=== PATIENT | female | born 1950 | race Caucasian/White ===

== ENCOUNTER 2016-08-07 18:50 | Emergency (ER) | payer OTHER ==
[2016-08-07] MEDS ORDERED: IBUPROFEN 600 MG TABLET PO STA (19:17)
[2016-08-07] MEDS ORDERED: IBUPROFEN 600 MG TABLET PO ONE (19:18)
[2016-08-07] MEDS ORDERED: levoFLOXacin 250 MG TABLET PO STA (19:48)
[2016-08-07] MEDS ORDERED: HYDROcod/ACET 5/325 Prepack 6 PO STA (19:55)
[2016-08-07] MEDS ORDERED: HYDROcod/ACET 5/325 Prepack 6 PO ONE (19:58)
[2016-08-07] MEDS ORDERED: levoFLOXacin 250 MG TABLET PO ONE (19:58)
== END 2016-08-07 20:07 | disposition home or self-care (01) ==
DX: N12 Tubulo-interstitial nephritis, not specified as acute or chronic (principal); R03.0 Elevated blood-pressure reading, without diagnosis of hypertension
CPT/HCPCS: 81001; 87086; 99283; A9270

== ENCOUNTER 2017-01-09 21:28 | Outpatient (CLI) | payer OTHER | END 2017-01-09 21:29 | disposition critical access hospital (66) | LOC: EMS 21:28 | PROVIDERS: ATTEND Surgery | DX: R42 Dizziness and giddiness (principal) | CPT/HCPCS: A0425; A0427 ==

== ENCOUNTER 2017-01-09 21:48 | Emergency (ER) | payer OTHER ==
[2017-01-09] MEDS ORDERED: SODIUM CHLORIDE 0.9% 1,000 ML IV ONE (22:31)
[2017-01-09 22:54] LABS: BASOPHILS # (AUTO) 0.1 10^3/uL (0.0-0.1); BASOPHILS % (AUTO) 0.7 %; EOSINOPHILS # (AUTO) 0.2 10^3/uL (0.0-0.7); EOSINOPHILS % (AUTO) 1.3 %; HCT - HEMATOCRIT 38.3 % (37.0-47.0); HGB - HEMOGLOBIN 12.8 g/dL (12.0-16.0); LYMPHOCYTES # (AUTO) 2.1 10^3/uL (1.5-3.5); LYMPHOCYTES % (AUTO) 17.4 %; MEAN CORPUSCULAR HEMOGLOBIN 29.8 pg (27.0-31.0); MEAN CORPUSCULAR HGB CONC 33.5 g/dL (32.0-36.0); MONOCYTES # (AUTO) 0.8 10^3/uL (0.0-1.0); MONOCYTES % (AUTO) 6.7 %; NEUTROPHILS # (AUTO) 8.7 10^3/uL (1.5-6.6); NEUTROPHILS % (AUTO) 73.9 %; RED CELL DISTRIBUTION WIDTH 13.3 % (12.0-15.0); UNCORRECTED WHITE BLOOD COUNT 11.8 x10^3/uL; WHITE BLOOD COUNT 11.8 x10^3/uL (4.8-10.8)
[2017-01-09 23:13] LABS: ALBUMIN/GLOBULIN RATIO 1.7 (1.0-2.2); BILIRUBIN,TOTAL 0.6 mg/dL (0.2-1.0); CREATININE 0.8 mg/dL (0.4-1.0); POTASSIUM 3.6 mmol/L (3.5-5.0); TOTAL PROTEIN 6.8 g/dL (6.7-8.2)
[2017-01-09] MEDS ORDERED: ONDANSETRON ODT 4 MG Prepack 2 TL PRN (23:39)
--- NOTE | 2017-01-09 23:39 | ED Physician Documentation ---
PD HPI NVD - Stated complaint Stated Complaint: DIZZY,NAUSEA - Chief complaint Chief Complaint: Abd Pain - History obtained from History obtained from: Patient - History of Present Illness Timing - onset: Today Timing - details: Abrupt onset, Now resolved Associated symptoms: Dizzy Contributing factors: Other (recent flu vaccine) Similar symptoms before: Has not had sx before Recently seen: Not recently seen - Additonal information Additional information: Patient is a 66 year old female with no significant past medical history who is presenting to the emergency department for nausea, vomiting diarrhea and dizziness. patient states that today she had a flu shot. later on she felt dizzy and clammy and patient called ems. Patient states that she had an episode and diarrhea and vomiting and her symptoms improved. Patient denied any chest pain or shortness of breath. Review of Systems Constitutional: reports: Chills. denies: Fever Eyes: denies: Decreased vision, Photophobia Ears: denies: Ear pain, Drainage/discharge Nose: denies: Congestion Throat: denies: Sore throat Cardiac: denies: Chest pain / pressure, Palpitations Respiratory: denies: Dyspnea, Cough, Wheezing GI: reports: Abdominal Pain, Nausea, Vomiting, Diarrhea : denies: Dysuria, Frequency, Hesitancy Musculoskeletal: denies: Neck pain, Extremity pain Neurologic: denies: Generalized weakness Immunocompromised: denies: Immunocompromised PD PAST MEDICAL HISTORY - Past Medical History Past Medical History: Yes Psych: Depression - Past Surgical History Past Surgical History: No - Present Medications Home Medications: Ambulatory Orders Medication Instructions Recorded Confirmed Lamotrigine [Lamictal] 50 mg PO DAILY 08/07/16 01/09/17 Ondansetron Odt [Zofran] 4 mg TL Q6H PRN #14 tablet 01/09/17 - Allergies Allergies/Adverse Reactions: Allergies Allergy/AdvReac Type Severity Reaction Status Date / Time codeine AdvReac Nausea Verified 01/09/17 21:57 hydrocodone AdvReac Nausea Verified 01/09/17 21:57 "all those codeine things" AdvReac Nausea Uncoded 01/09/17 21:57 - Social History Does the pt smoke?: No Smoking Status: Never smoker Does the pt drink ETOH?: Yes Does the pt have substance abuse?: No - Immunizations Immunizations are current?: Yes - POLST Patient has POLST: No PD ED PE NORMAL - General General: Alert and oriented X 3 - HEENT HEENT: Atraumatic, PERRL - Neck Neck: Supple, no meningeal sign, No JVD - Cardiac Cardiac: RRR, No murmur - Respiratory Respiratory: No respiratory distress, Clear bilaterally - Abdomen Abdomen: Soft - Derm Derm: Normal color, Warm and dry, No rash - Extremities Extremities: No deformity, No tenderness to palpate, No edema - Neuro Neuro: Alert and oriented X 3, No motor deficit, No sensory deficit, Normal speech - Psych Psych: Normal mood PD ED PE EXPANDED - General General: Alert - HEENT HEENT: Dry mucous membranes - Abdomen Abdomen: Hyperactive BS. No: Distended, Rebound, Guarding Results - Vitals Vitals: Vital Signs - 24 hr 01/09/17 01/09/17 01/09/17 21:51 22:38 23:18 Temperature 36.5 C Heart Rate 56 L 66 53 L Respiratory 18 12 15 Rate Blood Pressure 113/51 L 117/53 L 103/56 L O2 Saturation 98 97 97 01/09/17 23:53 Temperature 36.3 C L Heart Rate 57 L Respiratory 12 Rate Blood Pressure 120/60 O2 Saturation 99 Oxygen O2 Source Room air - EKG (time done) 2210 Rate: Rate (enter#) (59) Rhythm: NSR [place]: Normal Intervals: Normal NM QRS: Normal Ischemia: Normal ST segments Compare to prior EKG: Old EKG unavailable - Labs Labs: Laboratory Tests 01/09/17 01/09/17 01/09/17 22:40 22:40 22:40 WBC 11.8 H RBC 4.30 Hgb 12.8 Hct 38.3 MCV 89.0 MCH 29.8 MCHC 33.5 RDW 13.3 Plt Count 156 MPV 10.0 Neut # 8.7 H Lymph # 2.1 [place] # 0.8 Eos # 0.2 Baso # 0.1 Absolute Nucleated RBC 0.00 Nucleated RBC % 0.0 Sodium 138 Potassium 3.6 Chloride 103 Carbon Dioxide 27 Anion Gap 8.0 BUN 13 Creatinine 0.8 Estimated GFR (MDRD) 72 L Glucose 145 H Calcium 9.0 Total Bilirubin 0.6 AST 20 ALT 21 Alkaline Phosphatase 69 Troponin I < 0.04 Total Protein 6.8 Albumin 4.3 Globulin 2.5 Albumin/Globulin Ratio 1.7 Lipase 24 PD MEDICAL DECISION MAKING - ED course Complexity details: reviewed old records, reviewed results, re-evaluated patient , considered differential, d/w patient ED course: Patient was seen and examined at bedside. IV access was gained. ekg was performed which showed sinus rhythm. labs were drawn. Patient was treated with zofran and IV fluids. Patient stated that her symptoms resolved. Patient' s diagnostics were all within normal limits. Patient was discharged in stable condition with a resolution of her symptoms. Departure - Departure Disposition: 01 Home, Self Care Clinical Impression: Gastroenteritis Condition: Good Instructions: ED Gastroenteritis Non Infec Follow-Up: Alessia Weiss PA [Primary Care Provider] - Within 3 Days Prescriptions: Ondansetron Odt [Zofran] 4 mg TL Q6H PRN #14 tablet PRN Reason: Nausea / Vomiting Comments: Your diagnostics today were within normal limits. It is difficult to say if it the symptoms are secondary to the vaccine you had, food poisoning or a virus. Either way treatment is all the same. It is supportive care with zofran for nausea and stay hydrated with gatorade or electrolyte solution. You should follow up with your doctor if your symptoms persist for more than a few days. You may return to the emergency department department at any time for new, worsening or uncontrollable symptoms. Discharge Date/Time: 01/10/17 00:17
[2017-01-09 23:56] VITALS: BP 120/60
[2017-01-10] MEDS ORDERED: ONDANSETRON ODT 4 MG Prepack 2 TL ONE (00:16)
== END 2017-01-10 00:17 | disposition home or self-care (01) ==
LOC: EDUNIT# → ED 21:48
DX: K52.9 Noninfective gastroenteritis and colitis, unspecified (principal); N30.00 Acute cystitis without hematuria
CPT/HCPCS: 36415; 80053; 81001; 83690; 84484; 85025; 87086; 93005; 99284

== ENCOUNTER 2017-01-10 12:25 | Outpatient (CLI) | payer OTHER ==
[2017-01-10 11:45] LABS: BILIRUBIN,URINE NEGATIVE (NEGATIVE)
[2017-01-10 12:14] LABS: UR CULTURE IF IND INDICATED; WBC,URINE 0-3 /HPF (0-5)
== END 2017-01-10 12:26 | disposition home or self-care (01) ==
LOC: LAB.R 12:25
PROVIDERS: ATTEND Nurse Practitioner Family
DX: N30.00 Acute cystitis without hematuria (principal)
CPT/HCPCS: 81001; 87086

== ENCOUNTER 2017-02-06 13:25 | Outpatient (CLI) | payer OTHER ==
[2017-02-06 17:43] LABS: BASOPHILS # (AUTO) 0.1 10^3/uL (0.0-0.1); BASOPHILS % (AUTO) 0.7 %; EOSINOPHILS # (AUTO) 0.3 10^3/uL (0.0-0.7); EOSINOPHILS % (AUTO) 3.4 %; HCT - HEMATOCRIT 39.1 % (37.0-47.0); HGB - HEMOGLOBIN 13.2 g/dL (12.0-16.0); LYMPHOCYTES # (AUTO) 2.7 10^3/uL (1.5-3.5); LYMPHOCYTES % (AUTO) 33.1 %; MEAN CORPUSCULAR HEMOGLOBIN 30.3 pg (27.0-31.0); MEAN CORPUSCULAR HGB CONC 33.7 g/dL (32.0-36.0); MEAN PLATELET VOLUME 10.8 fL (7.9-10.8); MONOCYTES # (AUTO) 0.7 10^3/uL (0.0-1.0); MONOCYTES % (AUTO) 8.6 %; NEUTROPHILS # (AUTO) 4.4 10^3/uL (1.5-6.6); NEUTROPHILS % (AUTO) 54.2 %; RED BLOOD COUNT 4.34 10^6/uL (4.20-5.40); RED CELL DISTRIBUTION WIDTH 13.6 % (12.0-15.0); UNCORRECTED WHITE BLOOD COUNT 8.2 x10^3/uL; WHITE BLOOD COUNT 8.2 x10^3/uL (4.8-10.8)
== END 2017-02-06 13:26 | disposition home or self-care (01) ==
LOC: LAB.F 13:25
PROVIDERS: ATTEND Nurse Practitioner Family
DX: Z13.0 Encounter for screening for diseases of the blood and blood-forming organs and certain disorders involving the immune mechanism (principal)
CPT/HCPCS: 36415; 85025

== ENCOUNTER 2017-04-17 11:52 | Outpatient (CLI) | payer OTHER ==
--- NOTE | 2017-04-18 18:29 | Ultrasound Report ---
DATE OF SERVICE: 04/17/2017 RIGHT UPPER QUADRANT ULTRASOUND: 04/17/2017 CLINICAL INDICATION: Right upper quadrant pain. TECHNIQUE: Real-time scanning was performed with apprenticeship representative static images obtained. The liver measures 13.5 cm. Hepatic echogenicity is normal. No intrahepatic biliary dilatation or f ocal parenchymal lesion is present. The common bile duct measures 4 mm. The gallbladder is normal. The right kidney measures 10.6 cm, and demonstrates no hydronephrosis. No free fluid is present. IMPRESSION: Normal right upper quadrant ultrasound. No evidence of cholelithiasis or biliary obstru ction. TD: 04/18/2017 19:28
== END 2017-04-17 11:53 | disposition home or self-care (01) ==
LOC: DI 11:52
PROVIDERS: ATTEND Nurse Practitioner Family
DX: R10.11 Right upper quadrant pain (principal)
CPT/HCPCS: 76705

== ENCOUNTER 2017-10-24 14:25 | Outpatient (CLI) | payer OTHER ==
--- NOTE | 2017-10-24 14:57 | XRAY Report ---
Procedure Date: 10/24/2017 Accession Number: [id number] / [id number] Procedure: XRS - Hand 3 View LT CPT Code: FULL RESULT: EXAM: Hand 3 View LT DATE: 10/24/2017 2:44 PM CLINICAL HISTORY: PAIN IN LEFT WRIST HAND COMPARISON: None. TECHNIQUE: 3 views. FINDINGS: Bones: Osteoarthrosis of the proximal and distal interphalangeal joints, most pronounced in the distal second and third rays. Joints: Normal. No subluxations. Soft Tissues: Normal. No soft tissue swelling. IMPRESSION: Osteoarthrosis as described. No fracture. RADIA
--- NOTE | 2017-10-24 15:09 | XRAY Report ---
Procedure Date: 10/24/2017 Accession Number: [id number] / [id number] Procedure: XRS - Wrist 4 View LT CPT Code: FULL RESULT: EXAM: Wrist 4 View LT DATE: 10/24/2017 2:44 PM CLINICAL HISTORY: PAIN IN LEFT WRIST HAND COMPARISON: None. TECHNIQUE: 3 views. FINDINGS: Bones: Normal. No fractures or bone lesions. Joints: Normal. No subluxations. Soft Tissues: Normal. No soft tissue swelling. IMPRESSION: Normal wrist radiography. RADIA
== END 2017-10-24 14:26 | disposition home or self-care (01) ==
LOC: DI.S 14:25
PROVIDERS: ATTEND Nurse Practitioner Family
DX: M19.042 Primary osteoarthritis, left hand (principal)

== ENCOUNTER 2018-05-07 13:34 | Outpatient (CLI) | payer OTHER ==
[2018-05-07 17:37] LABS: BASOPHILS # (AUTO) 0.1 10^3/uL (0.0-0.1); EOSINOPHILS # (AUTO) 0.2 10^3/uL (0.0-0.7); EOSINOPHILS % (AUTO) 3.2 %; HGB - HEMOGLOBIN 13.4 g/dL (12.0-16.0); LYMPHOCYTES # (AUTO) 1.9 10^3/uL (1.5-3.5); LYMPHOCYTES % (AUTO) 35.4 %; MEAN CORPUSCULAR HEMOGLOBIN 29.1 pg (27.0-31.0); MEAN CORPUSCULAR HGB CONC 32.1 g/dL (32.0-36.0); MEAN CORPUSCULAR VOLUME 90.7 fL (81.0-99.0); MEAN PLATELET VOLUME 10.2 fL (7.9-10.8); MONOCYTES # (AUTO) 0.4 10^3/uL (0.0-1.0); MONOCYTES % (AUTO) 8.1 %; NEUTROPHILS # (AUTO) 2.8 10^3/uL (1.5-6.6); NEUTROPHILS % (AUTO) 52.3 %; PLT - PLATELET COUNT 200 10^3/uL (130-450); RED CELL DISTRIBUTION WIDTH 13.8 % (12.0-15.0); WHITE BLOOD COUNT 5.4 x10^3/uL (4.8-10.8)
[2018-05-07 17:54] LABS: ALBUMIN 4.2 g/dL (3.2-5.5); ALBUMIN/GLOBULIN RATIO 1.6 (1.0-2.2); BILIRUBIN,TOTAL 0.6 mg/dL (0.2-1.0); CALCIUM 9.1 mg/dL (8.5-10.3); CREATININE 0.7 mg/dL (0.4-1.0); TOTAL PROTEIN 6.9 g/dL (6.7-8.2)
== END 2018-05-07 13:35 | disposition home or self-care (01) ==
LOC: LAB.F 13:34
PROVIDERS: ATTEND Physician Assistant Medical
DX: Z51.81 Encounter for therapeutic drug level monitoring (principal)
CPT/HCPCS: 36415; 80053; 85025

== ENCOUNTER 2018-05-24 11:44 | Outpatient (CLI) | payer OTHER ==
--- NOTE | 2018-05-24 17:50 | DEXA Report ---
Reason: POSTMENOPAUSAL STATUS Procedure Date: 05/24/2018 Accession Number: [id number] / [id number] Procedure: DEX - Dexa Spine and/or Hip CPT Code: FULL RESULT: EXAM: Dexa Spine and/or Hip DATE: 05/24/2018 1:16 PM CLINICAL HISTORY: POSTMENOPAUSAL STATUS TECHNIQUE: Dual energy x-ray absorptiometry (DXA) was performed on a [employer] System. Regions measured are the AP Spine, femoral neck, and if needed forearm. COMPARISON: 01/30/2008 In accordance with the International Society for Clinical Densitometry (ISCD) guidelines, data from previous exams may be reanalyzed using current recommendations and techniques. This is done to allow a more accurate basis for comparison with the current study. FINDINGS: The data for the lumbar spine is as follows: BMD (g/cm/cm) T-SCORE Z-SCORE REGION L1 1.149 0.2 1.6 L2 1.144 -0.5 0.9 L3 1.146 -0.4 1.0 L4 1.005 -1.6 -0.2 TOTAL 1.102 -0.7 0.8 NOTE: All evaluable vertebrae are used for classification The data for the hip is as follows: BMD (g/cm/cm) T-SCORE Z-SCORE REGION Neck 0.940 -0.7 0.7 TOTAL 0.973 -0.3 0.8 NOTE: The femoral neck or total proximal femur, whichever is lowest, is used for classification. IMPRESSION: THE WHO CLASSIFICATION BASED ON THE INTERNATIONAL REFERENCE STANDARD IS NORMAL. THE FRACTURE RISK IS NOT INCREASED. RECOMMENDATION: Patients with diagnosis of osteoporosis or osteopenia should have regular bone mineral density assessment. For those eligible for Medicare, routine testing is allowed once every 2 years. Testing frequency can be increased for patients who have rapidly progressing disease or for those who are receiving medical therapy to restore bone mass. COMMENT: World Health Organization (WHO) definitions for osteoporosis and osteopenia: NORMAL BMD: T-score at -1.0 or higher, fracture risk is low OSTEOPENIA BMD: T-score between -1.0 and -2.5, fracture risk is increased. OSTEOPOROSIS BMD: T-score at -2.5 or lower, fracture risk is high. National Osteoporosis Foundation recommends: 1. Obtain adequate dietary calcium (at least 1200 mg per day) and vitamin D (400-800 international units per day). 2. Participate, as appropriate, in regular weightbearing and muscle-strengthening exercise. 3. Avoid tobacco use and reduce alcohol and caffeine intake. 4. For more detailed information see the website at www.NOF.org.
== END 2018-05-24 11:45 | disposition home or self-care (01) ==
LOC: DI 11:44
PROVIDERS: ATTEND Physician Assistant Medical
DX: Z78.0 Asymptomatic menopausal state (principal); M18.12 Unilateral primary osteoarthritis of first carpometacarpal joint, left hand
CPT/HCPCS: 77080

== ENCOUNTER 2018-05-24 11:45 | Outpatient (CLI) | payer OTHER ==
--- NOTE | 2018-05-25 12:39 | XRAY Report ---
Reason: PAIN IN LEFT WRIST Procedure Date: 05/24/2018 Accession Number: [id number] / [id number] Procedure: XR - Wrist 4 View LT CPT Code: FULL RESULT: EXAM: LEFT WRIST RADIOGRAPHY EXAM DATE: 05/24/2018 12:47 PM. CLINICAL HISTORY: PAIN IN LEFT WRIST. Pain at base of first metacarpal, navicular area. COMPARISON: WRIST 4 VIEW LT 10/24/2017 2:49 PM. TECHNIQUE: 4 views. FINDINGS: Bones: Normal. No fractures or bone lesions. Joints: No subluxation or dislocation. There is moderate joint space narrowing, mild sclerosis, and moderate marginal osteophyte formation at the first carpometacarpal joint. The appearance is similar to prior. Soft Tissues: Normal. No soft tissue swelling. IMPRESSION: 1. No acute osseous abnormality of the wrist. 2. Moderate degenerative osteoarthritis at the first carpometacarpal joint, as seen on the prior exam. RADIA
== END 2018-05-24 11:46 | disposition home or self-care (01) ==
LOC: DI 11:45
PROVIDERS: ATTEND Physician Assistant Medical
DX: M18.12 Unilateral primary osteoarthritis of first carpometacarpal joint, left hand (principal)

== ENCOUNTER 2019-03-19 09:42 | Outpatient (CLI) | payer OTHER ==
[2019-03-19 17:33] LABS: HB2 TOTAL 13.6 g/dL; HEMOGLOBIN A1C 0.6 g/dL; HEMOGLOBIN A1C % 6.2 % (4.6-6.2)
== END 2019-03-19 09:43 | disposition home or self-care (01) ==
LOC: LAB.S 09:42
PROVIDERS: ATTEND Physician Assistant Medical
DX: R73.01 Impaired fasting glucose (principal)
CPT/HCPCS: 36415; 83036

== ENCOUNTER 2019-05-20 08:00 | Outpatient (CLI) | payer OTHER | END 2019-05-20 23:59 | disposition home or self-care (01) | LOC: LAB.R 08:00 | PROVIDERS: ATTEND Physician Assistant Medical | DX: N39.0 Urinary tract infection, site not specified (principal) | CPT/HCPCS: 87077; 87086; 87181 ==

== ENCOUNTER 2019-12-05 12:50 | Outpatient (CLI) | payer OTHER ==
--- NOTE | 2019-12-05 15:01 | XRAY Report ---
PROCEDURE: Chest 2 View X-Ray INDICATIONS: HISTORY OF PNEUMONIA, PERSONAL HISTORY OF SMOKING TECHNIQUE: 2 view(s) of the chest. COMPARISON: None. FINDINGS: Surgical changes and devices: None. Lungs and pleura: No pleural effusions or pneumothorax. Lungs are clear. Mediastinum: Mediastinal contours are normal. Heart size is normal. Bones and chest wall: No suspicious bony abnormalities. Soft tissues appear unremarkable. IMPRESSION: Normal for age, source of current symptoms is not seen. Reviewed by: Torin Escobar MD on 12/05/2019 2:59 PM PDT Approved by: Torin Escobar MD on 12/05/2019 2:59 PM PDT Station ID: [id number]
== END 2019-12-05 12:51 | disposition home or self-care (01) ==
LOC: DI 12:50
PROVIDERS: ATTEND Family Medicine
DX: Z87.01 Personal history of pneumonia (recurrent) (principal); Z87.891 Personal history of nicotine dependence
CPT/HCPCS: 71046

== ENCOUNTER 2020-04-28 13:33 | Outpatient (CLI) | payer OTHER ==
[2020-04-28 19:50] LABS: BASOPHILS # (AUTO) 0.1 10^3/uL (0.0-0.1); BASOPHILS % (AUTO) 0.9 %; EOSINOPHILS # (AUTO) 0.3 10^3/uL (0.0-0.7); EOSINOPHILS % (AUTO) 4.6 %; HGB - HEMOGLOBIN 14.3 g/dL (12.0-16.0); LYMPHOCYTES # (AUTO) 2.7 10^3/uL (1.5-3.5); LYMPHOCYTES % (AUTO) 39.3 %; MEAN CORPUSCULAR HEMOGLOBIN 29.1 pg (27.0-31.0); MEAN CORPUSCULAR HGB CONC 32.3 g/dL (32.0-36.0); MEAN CORPUSCULAR VOLUME 90.2 fL (81.0-99.0); MEAN PLATELET VOLUME 12.4 fL (7.9-10.8); MONOCYTES # (AUTO) 0.7 10^3/uL (0.0-1.0); MONOCYTES % (AUTO) 9.6 %; NEUTROPHILS # (AUTO) 3.2 10^3/uL (1.5-6.6); NEUTROPHILS % (AUTO) 45.3 %; PLT - PLATELET COUNT 237 10^3/uL (130-450); RED BLOOD COUNT 4.91 10^6/uL (4.20-5.40); RED CELL DISTRIBUTION WIDTH 13.5 % (12.0-15.0)
[2020-04-28 20:01] LABS: HEMOGLOBIN A1c% 5.7 % (4.27-6.07)
[2020-04-28 20:04] LABS: ALBUMIN 4.4 g/dL (3.2-5.5); ALBUMIN/GLOBULIN RATIO 1.4 (1.0-2.2); ALKALINE PHOSPHATASE 91 IU/L (42-121); ALT ALANINE AMINOTRANSFERASE 20 IU/L (10-60); AST ASPARTATE AMINOTRANSFERASE 16 IU/L (10-42); BILIRUBIN,TOTAL 0.7 mg/dL (0.2-1.0); BUN - BLOOD UREA NITROGEN 14 mg/dL (6-20); CALCIUM 9.4 mg/dL (8.5-10.3); CARBON DIOXIDE - CO2 27 mmol/L (21-32); CHLORIDE 102 mmol/L (101-111); CHOL/HDL RATIO 3.5 (<4.4); CHOLESTEROL 277 mg/dL; CREATININE 0.6 mg/dL (0.4-1.0); GLUCOSE 110 mg/dL (70-100); HDL CHOLESTEROL 80 mg/dL; LDL CHOLESTEROL,CALCULATED 178 mg/dL; LDL/HDL RATIO 2.2 (<4.4); SODIUM 137 mmol/L (135-145); TOTAL PROTEIN 7.5 g/dL (6.7-8.2); VLDL CHOLESTEROL 19 mg/dL
== END 2020-04-28 13:34 | disposition home or self-care (01) ==
LOC: LAB.S 13:33
PROVIDERS: ATTEND Internal Medicine
DX: Z51.81 Encounter for therapeutic drug level monitoring (principal); E78.70 Disorder of bile acid and cholesterol metabolism, unspecified; R73.01 Impaired fasting glucose; E61.1 Iron deficiency
CPT/HCPCS: 36415; 80053; 80061; 83036; 83721; 85025

== ENCOUNTER 2020-09-15 08:00 | Outpatient (CLI) | payer OTHER ==
--- NOTE | 2020-09-15 14:57 | XRAY Report ---
PROCEDURE: Hip w/Pelvis 2-3V LT INDICATIONS: STRAIN OF LEFT HIP TECHNIQUE: AP pelvis with lateral view(s) of the bilateral hip(s). COMPARISON: None. FINDINGS: Bones: No fractures or dislocations. Pelvic ring appears intact. No suspicious bony lesions. Mild joint space narrowing and periarticular osteophyte formation at the bilateral hips. Soft tissues: The visualized bowel gas pattern is normal. No suspicious soft tissue calcifications. IMPRESSION: Bilateral hip osteoarthritis. No acute fracture. No osseous lesion. If symptoms and/or c linical suspicion for pathology continue, further assessment with repeat plain films, or advanced jerome ging (e.g., CT, MRI, or bone scan) is recommended for further assessment. Reviewed by: Daksha Castellon MD on 09/15/2020 2:55 PM PDT Approved by: Daksha Castellon MD on 09/15/2020 2:55 PM PDT Station ID: [id number]
== END 2020-09-15 23:59 | disposition home or self-care (01) ==
LOC: DI.S 08:00
PROVIDERS: ATTEND Emergency Medicine
DX: S76.012A Strain of muscle, fascia and tendon of left hip, initial encounter (principal); M16.0 Bilateral primary osteoarthritis of hip

== ENCOUNTER 2020-12-26 18:56 | Emergency (ER) | payer MEDICARE, OTHER ==
--- NOTE | 2020-12-26 20:20 | ED Physician Documentation ---
PD HPI OPHTHO - Stated complaint Stated Complaint: EYE INJURY - Chief complaint Chief Complaint: Heent - History obtained from History obtained from: Patient (For the last 36 hours or so this 70-year-old woman who does not really have any particular eye problems presents with floaters in the lateral vision of her left eye. Its worse when she moves her eyes around. Central vision is unaffected. She was going to be seeing Dr. Roach for a routine visit) Review of Systems Constitutional: denies: Fever, Chills Eyes: denies: Photophobia, Discharge, Irritation Ears: denies: Loss of hearing, Ear pain PD PAST MEDICAL HISTORY - Past Medical History Psych: Depression - Past Surgical History Past Surgical History: No - Present Medications Home Medications: Ambulatory Orders Medication Instructions Recorded Confirmed lamoTRIgine [Lamictal] 50 mg PO DAILY 08/07/16 12/26/20 - Allergies Allergies/Adverse Reactions: Allergies Allergy/AdvReac Type Severity Reaction Status Date / Time codeine AdvReac Nausea Verified 12/26/20 19:00 hydrocodone AdvReac Nausea Verified 12/26/20 19:00 "all those codeine things" AdvReac Nausea Uncoded 12/26/20 19:00 - Social History Does the pt smoke?: No Smoking Status: Never smoker Does the pt drink ETOH?: Yes Does the pt have substance abuse?: No - Immunizations Immunizations are current?: Yes - POLST Patient has POLST: No PD ED PE NORMAL - Vitals Vital signs reviewed: Yes - General General: Alert and oriented X 3, No acute distress - HEENT HEENT: PERRL, EOMI, Other (Nondilated funduscopic examination is normal. Retinal ultrasound on the left is normal.) - Neck Neck: Supple, no meningeal sign, No bony TTP - Neuro Neuro: Alert and oriented X 3, qa consultant 2-12 intact, No motor deficit, No sensory deficit, Normal speech Eye Opening: Spontaneous Motor: Obeys Commands Verbal: Oriented GCS Score: 15 - Psych Psych: Normal mood, Normal affect Results - Vitals Vitals: Vital Signs - 24 hr 12/26/20 19:00 Temperature 36.5 C Heart Rate 74 Respiratory 16 Rate Blood Pressure 127/81 H O2 Saturation 96 Oxygen O2 Source Room air Departure - Departure Disposition: 01 Home, Self Care Clinical Impression: Vitreous detachment of left eye Condition: Good Record reviewed to determine appropriate education?: Yes Instructions: Flashes and Floaters Follow-Up: Kentrell Roach MD [Provider Admit Priv/Credential] - Comments: As discussed, your symptoms are very consistent with a vitreous detachment which is not as serious as a retinal detachment. I have texted Dr. Roach to see you on Monday as opposed to your scheduled appointment. I would still call his office at [phone] on Monday to get it scheduled formally with his switchboard.
[2020-12-26 20:31] VITALS: BP 129/72
== END 2020-12-26 20:31 | disposition home or self-care (01) ==
LOC: ED 18:56
DX: H43.812 Vitreous degeneration, left eye (principal)
CPT/HCPCS: 99281; 99284

== ENCOUNTER 2021-02-02 16:38 | Outpatient (CLI) | payer OTHER | END 2021-02-02 16:39 | disposition home or self-care (01) | LOC: COV 16:38 | PROVIDERS: ATTEND Family Medicine | DX: U07.1 COVID-19 (principal) ==

== ENCOUNTER 2021-02-05 10:41 | Outpatient (CLI) | payer OTHER ==
--- NOTE | 2021-02-05 12:20 | XRAY Report ---
PROCEDURE: Wrist 3 View LT INDICATIONS: WRIST JOINT PAIN, LEFT TECHNIQUE: 3 views of the wrist were acquired. COMPARISON: None FINDINGS: Bones: No fractures or dislocations. No suspicious bony lesions. Degenerative changes of the first carpometacarpal joint consistent with osteoarthritis. Scaphoid view: No fracture Soft tissues: No suspicious soft tissue calcifications. IMPRESSION: 1. No acute abnormality. 2. Degenerative changes of the first carpometacarpal joint consistent with osteoarthritis. Reviewed by: Yvan Sanchez on 02/05/2021 12:19 PM PDT Approved by: Yvan Sanchez on 02/05/2021 12:19 PM PDT Station ID: [id number]
--- NOTE | 2021-02-11 02:21 | XRAY Report ---
PROCEDURE: Hand 3 View LT INDICATIONS: HAND JOINT PAIN, LEFT TECHNIQUE: 3 views of the hand(s) acquired. Images became available for review on 02/10/2021. COMPARISON: X-ray hand 10/24/2017 FINDINGS: Bones: No fractures or dislocations. No suspicious bony lesions. Scattered overall moderate IP deg enerative narrowing with areas of subchondral sclerosis noted most prominent at the second and third DIP joints. Moderate first CMC degenerative narrowing is present. There are subchondral lucencies teetee ntified at the second and third DIP joints. Soft tissues: No suspicious soft tissue calcifications. IMPRESSION: Arthritic changes most severe at the second and third DIP joints with areas of subchondral lucency. E rosive arthritides cannot be excluded. Reviewed by: Khushboo Lo MD on 02/11/2021 1:36 AM PDT Approved by: Khushboo Lo MD on 02/11/2021 1:36 AM PDT Station ID: [id number]
== END 2021-02-05 10:42 | disposition home or self-care (01) ==
LOC: DI.S 10:41
PROVIDERS: ATTEND Internal Medicine
DX: M19.032 Primary osteoarthritis, left wrist (principal); M19.042 Primary osteoarthritis, left hand

== ENCOUNTER 2022-03-07 13:47 | Outpatient (CLI) | payer OTHER ==
[2022-03-07 19:55] LABS: BASOPHILS # (AUTO) 0.1 10^3/uL (0.0-0.1); EOSINOPHILS # (AUTO) 0.2 10^3/uL (0.0-0.7); EOSINOPHILS % (AUTO) 3.2 %; HCT - HEMATOCRIT 43.6 % (37.0-47.0); HGB - HEMOGLOBIN 13.8 g/dL (12.0-16.0); LYMPHOCYTES # (AUTO) 2.6 10^3/uL (1.5-3.5); LYMPHOCYTES % (AUTO) 37.5 %; MEAN CORPUSCULAR HEMOGLOBIN 28.5 pg (27.0-31.0); MEAN CORPUSCULAR HGB CONC 31.7 g/dL (32.0-36.0); MEAN CORPUSCULAR VOLUME 90.1 fL (81.0-99.0); MONOCYTES # (AUTO) 0.6 10^3/uL (0.0-1.0); MONOCYTES % (AUTO) 8.9 %; NEUTROPHILS # (AUTO) 3.4 10^3/uL (1.5-6.6); NEUTROPHILS % (AUTO) 49.1 %; PLT - PLATELET COUNT 247 10^3/uL (130-450); RED BLOOD COUNT 4.84 10^6/uL (4.20-5.40); RED CELL DISTRIBUTION WIDTH 13.5 % (12.0-15.0)
[2022-03-07 20:15] LABS: % IRON SATURATION 31 % (20-50); ALBUMIN 4.2 g/dL (3.2-5.5); ALBUMIN/GLOBULIN RATIO 1.4 (1.0-2.2); ALKALINE PHOSPHATASE 113 IU/L (42-121); ALT ALANINE AMINOTRANSFERASE 33 IU/L (10-60); AST ASPARTATE AMINOTRANSFERASE 26 IU/L (10-42); BILIRUBIN,TOTAL 0.6 mg/dL (0.2-1.0); BUN - BLOOD UREA NITROGEN 12 mg/dL (6-20); CALCIUM 9.3 mg/dL (8.5-10.3); CARBON DIOXIDE - CO2 28 mmol/L (21-32); CHLORIDE 103 mmol/L (101-111); CHOL/HDL RATIO 3.5 (<4.4); CHOLESTEROL 240 mg/dL; CREATININE 0.6 mg/dL (0.4-1.0); GFR - MDRD 99 (>89); GLUCOSE 98 mg/dL (70-100); HDL CHOLESTEROL 69 mg/dL; IRON 115 ug/dL (28-170); LDL CHOLESTEROL,CALCULATED 154 mg/dL; LDL/HDL RATIO 2.2 (<4.4); POTASSIUM 3.9 mmol/L (3.5-5.0); SODIUM 138 mmol/L (135-145); TOTAL IRON BINDING CAPACITY 365 ug/dL (250-450); TOTAL PROTEIN 7.3 g/dL (6.7-8.2); TRANSFERRIN 261 mg/dL (192-382); TRIGLYCERIDES 86 mg/dL; VLDL CHOLESTEROL 17 mg/dL
[2022-03-07 20:24] LABS: THYROID STIMULATING HORMONE 3.17 uIU/mL (0.34-5.60)
[2022-03-07 20:31] LABS: FERRITIN 85.6 ng/mL (11.0-306.8)
== END 2022-03-07 13:48 | disposition home or self-care (01) ==
LOC: LAB.S 13:47
PROVIDERS: ATTEND Nurse Practitioner
DX: E78.5 Hyperlipidemia, unspecified (principal); R53.83 Other fatigue; R79.0 Abnormal level of blood mineral; F32.A Depression, unspecified; R00.2 Palpitations
CPT/HCPCS: 36415; 80053; 80061; 82607; 82728; 83540; 83721; 84443; 84466; 85025

== ENCOUNTER 2022-07-25 13:50 | Emergency (ER) | payer OTHER ==
[2022-07-25 14:09] VITALS: BP 117/69
[2022-07-25] MEDS ORDERED: NIRMATRELVIR/RITONAVIR PREPACK PO STA (14:13)
--- NOTE | 2022-07-25 14:17 | ED Physician Documentation ---
History of Present Illness - Stated complaint Stated Complaint: C+ - Chief complaint Chief Complaint: General - History obtained from History obtained from: Patient - Additonal information Additional information: The patient comes to the emergency department after being seen in the walk-in clinic and diagnosed with COVID. She is only here because she wants Paxlovid. The pt is somewhat oppositional toward answering questions, and prefers to perseverate on past grievances with the [facility] [employer], but ultimately admits that she has had a cough, fatigue and aches for 2 days. Her daughter christophe so tested positive. They are here because the clinic did not have Paxlovid, and instructed them to come to the ED. PD PAST MEDICAL HISTORY - Past Medical History Psych: Depression - Past Surgical History Past Surgical History: No - Present Medications Home Medications: Ambulatory Orders Medication Instructions Recorded Confirmed lamoTRIgine [Lamictal] 50 mg PO DAILY 08/07/16 12/26/20 - Allergies Allergies/Adverse Reactions: Allergies Allergy/AdvReac Type Severity Reaction Status Date / Time codeine AdvReac Nausea Verified 07/25/22 14:06 hydrocodone AdvReac Nausea Verified 07/25/22 14:06 "all those codeine things" AdvReac Nausea Uncoded 07/25/22 14:06 - Social History Does the pt smoke?: No Smoking Status: Never smoker Does the pt drink ETOH?: Yes Does the pt have substance abuse?: No - Immunizations Immunizations are current?: Yes - POLST Patient has POLST: No PD ED PE NORMAL - Vitals Vital signs reviewed: Yes - General General: Alert and oriented X 3, No acute distress, Well developed/nourished - HEENT HEENT: Atraumatic, PERRL, EOMI, Moist mucous membranes - Neck Neck: Supple, no meningeal sign - Cardiac Cardiac: RRR, No murmur, Strong equal pulses - Respiratory Respiratory: No respiratory distress, Clear bilaterally - Derm Derm: Normal color, Warm and dry, No rash - Extremities Extremities: No deformity - Neuro Neuro: Alert and oriented X 3, Other (The pt is standing and ambulatory on a na rrow-based gait. No gross deficits.) - Psych Psych: Normal mood, Normal affect Results - Vitals Vitals: Oxygen O2 Source Room air PD Medical Decision Making - ED course Complexity details: considered differential, d/w patient ED course: I did d/w the pt that our focus in the ED needs to be her health and relevant history, not the airing of grievances which have nothing to do with this physician or the pt's visit to the ED. I have had to redirect the pt repeatedly to the reason she is here (stated by her to be a desire to get Paxlovid). The pt is not by any means seriously ill at this point, but I am willing to give her Paxlovid, and this has been dispensed from the ED. We have discussed the usual indications for follow-up and return. Departure - Departure Disposition: 01 Home, Self Care Clinical Impression: COVID-19 Condition: Stable Instructions: ED Viral Syndrome Comments: You have tested positive for COVID in an outside facility. Like any virus this will have to go away on its own. Most cases of COVID are causing some discomfort and upper respiratory symptoms, along occasionally with gastrointestinal symptoms and fever. You should take the Paxlovid as directed and stay home until you are feeling better. Discharge Date/Time: 07/25/22 14:58
== END 2022-07-25 14:58 | disposition home or self-care (01) ==
LOC: ED 13:50
DX: U07.1 COVID-19 (principal)
CPT/HCPCS: 99282; 99283; J3490

== ENCOUNTER 2022-09-14 13:14 | Outpatient (CLI) | payer OTHER ==
--- NOTE | 2022-09-14 16:44 | Ultrasound Report ---
PROCEDURE: Pelvic w/Transvaginal INDICATIONS: LOWER ABDOMINAL PAIN TECHNIQUE: Real-time scanning was performed of the pelvic organs, with image documentation. Transvaginal portion was not performed due to pain. COMPARISON: None. FINDINGS: Uterus: Uterus is anteverted and normal in size at 6 x 3.4 x 1.8 cm. The myometrium is homogeneous. The endometrium measures 2 mm in combined thickness. Right anterior intramural fibroid measuring 1 .4 x 1.3 x 0.7 cm. Ovaries: The right ovary measures 1.5 x 1.5 x 1.1 cm, with a calculated ovarian volume of 1 cc. The left ovary measures 1.6 x 1.3 x 1.1 cm, with a calculated ovarian volume of 1 cc. The ovaries have a normal sonographic appearance. Less than 12 follicles can be seen in each ovary. No adnexal art s are seen. No cystic lesions measuring greater than 3 cm. Other: No pathologic free abdominal or pelvic fluid. IMPRESSION: 1. Endometrium measures 2 mm. 2. Small right anterior intramural fibroid measuring 1.4 cm. 3. No significant ovarian cysts. Reviewed by: Timothy Grajeda MD on 09/14/2022 4:42 PM PDT Approved by: Timothy Grajeda MD on 09/14/2022 4:42 PM PDT Station ID: [id number]
== END 2022-09-14 13:15 | disposition home or self-care (01) ==
LOC: DI 13:14
PROVIDERS: ATTEND Nurse Practitioner Acute Care
DX: R10.30 Lower abdominal pain, unspecified (principal); D25.1 Intramural leiomyoma of uterus